=== PATIENT | male | born 1975 | race Two or more races ===

== ENCOUNTER → 2016-11-26 | Outpatient (CLI) | payer OTHER ==
[~2016-11-26] MED LIST: VICODIN 5/500 T1 TAB PO
--- NOTE | ~2016-11-26 | US136 ---
[facility] A Service of [facility] RADIOLOGY TEXT RESULTS PATIENT: ELI STEVENS LOCATION: CNIV : 79 UNIT #: [id number] AGE: [address]: ARIANE CONTRERAS MD SEX: M ORDER DR: [id number] [facility]. [place], [place] [address] [id number] O MR#: [id number] Acc #: [id number] NAME: ELI STEVENS : 1975 SEX: M STUDY DATE/TIME: 11/26/2016 10:48 UNIT: CNIV ROOM: STUDY DESCRIPTION: US U/L Ext [employer] Bilat Attending Physician: Ariane Contreras M.D. Referring Physician: Ariane Contreras M.D. Ordering Physician: Ariane Contreras M.D. Primary Care Physician: Ariane Contreras M.D. MEDICAL IMAGING REPORT This report is preliminary unless electronic signature is present EXAM US U/L ext art study ltd bilat. HISTORY Swelling. Claudication bilateral calves for 2 years. Diabetes, hypertension, hyperlipidemia, bilateral claudication. TECHNIQUE Ankle-brachial indices performed bilaterally. All pressure measurements are in mmHg. FINDINGS Right brachial pressure 173, left brachial pressure 161. Distal right lower extremity pressures as follows: Dorsalis pedis at ankle 177, posterior tibial at ankle 173, great toe 148. Ankle-brachial index 1.02. Pulse volume recordings normal. On left, distal pressures as follows: Dorsalis pedis at ankle 164, posterior tibial at ankle 176, great toe 133. Ankle-brachial index 1.02. Pulse volume recordings within normal limits. IMPRESSION 1. The ankle-brachial indices of 1.02 bilaterally are normal values. There appears to be adequate perfusion of the bilateral lower extremities in the resting state. 2. There is a mild pressure gradient between the upper extremities left lower than right. Correlate clinically for any indication of potentially hemodynamically significant luminal narrowing proximal left upper extremity arterial tree. 3. Note made of significant hypertension. Clinical correlation and follow up recommended. [facility] A Service of [facility] RADIOLOGY TEXT RESULTS PATIENT: ELI STEVENS LOCATION: [facility] : [birth year] UNIT #: [id number] AGE: [address]: ARIANE CONTRERAS MD SEX: M ORDER DR: Dictated by... Harley Fuentes M.D. THIS IS AN ELECTRONICALLY VERIFIED REPORT Harley Fuentes M.D. at 11/27/2016 6:17 PM AVIS/klaus TD: 11/27/2016 04:48 JOB #: [id number] MEDICAL IMAGING REPORT Page 1 of 1 COPY
== END | disposition home or self-care (01) ==
LOC: CNIV 11-22 11:00
DX: I73.9 Peripheral vascular disease, unspecified (principal); I10 Essential (primary) hypertension
CPT/HCPCS: 93922